=== PATIENT | male | born 1970 | race Caucasian/White ===

== ENCOUNTER 2016-12-31 16:16 | Outpatient (CLI) | payer OTHER | END 2016-12-31 16:20 | LOC: LAB 16:16 | PROVIDERS: ATTEND Family Medicine | DX: E11.9 Type 2 diabetes mellitus without complications (principal) | CPT/HCPCS: 36415; 83036 ==

== ENCOUNTER 2018-04-09 08:48 | Outpatient (CLI) | payer OTHER ==
[2018-04-09 09:15] LABS: eGFR (Non-African) > 60
== END 2018-04-09 08:50 ==
LOC: LAB 08:48
PROVIDERS: ATTEND Family Medicine
DX: E11.9 Type 2 diabetes mellitus without complications (principal); E03.9 Hypothyroidism, unspecified
CPT/HCPCS: 36415; 80053; 80061; 83036; 84443

== ENCOUNTER 2018-04-23 16:03 | Outpatient (CLI) | payer OTHER | END 2018-04-23 16:37 | LOC: OUT 16:03 | PROVIDERS: ATTEND Family Medicine | DX: E11.9 Type 2 diabetes mellitus without complications (principal) | CPT/HCPCS: 97802 ==

== ENCOUNTER 2018-07-01 08:40 | Outpatient (CLI) | payer OTHER | END 2018-07-01 08:43 | LOC: LAB 08:40 | PROVIDERS: ATTEND Family Medicine | DX: E11.9 Type 2 diabetes mellitus without complications (principal) | CPT/HCPCS: 36415; 83036 ==